=== PATIENT | male | born 1940 | race Hispanic/Latino ===

== ENCOUNTER 2017-12-27 06:43 | Day surgery (SDC) | payer OTHER ==
[2017-12-26 11:31] VITALS: BP 148/77
[2017-12-26 11:50] LABS: APPEARANCE,URINE Cloudy (CLEAR); BILIRUBIN,URINE Negative (NEGATIVE); COLOR,URINE Dark Yellow (YELLOW); GLUCOSE, URINE (UA) Negative (NEGATIVE); KETONES,URINE Negative (NEGATIVE); LEUKOCYTE ESTERASE ,URINE Large (NEGATIVE); NITRATE,URINE Negative (NEGATIVE); OCCULT BLOOD,URINE Negative (NEGATIVE); PH,URINE 5.5 (5.0-8.0); PROTEIN,URINE Negative (NEGATIVE)
[2017-12-26 11:51] LABS: BASOPHILS % (AUTO) 0.5 % (0.0-5.0); CREATININE 1.2 mg/dL (0.5-1.5); EOSINOPHILS % (AUTO) 3.3 % (0.0-8.0); HEMATOCRIT 37.9 % (42-54); LYMPHOCYTES % (AUTO) 39.5 % (21.0-51.0); MEAN CORPUSCULAR HEMOGLOBIN 34.1 pg (27.0-33.0); MEAN CORPUSCULAR VOLUME 97.6 fL (79-99); MONOCYTES % (AUTO) 5.9 % (3.0-13.0); NEUTROPHILS % (AUTO) 50.8 % (40.0-77.0); NUCLEATED RED BLOOD CELLS 0.1 % (0.0-0.19); PLATELET COUNT (AUTO) 151 K/uL (130-400); RED BLOOD CELL COUNT(AUTO) 3.89 MIL/uL (4.50-6.20); RED CELL DISTRIBUTION WIDTH 13.3 % (11.0-15.5)
[2017-12-26 12:00] LABS: RBC,URINE None Seen /HPF (0-1)
[2017-12-26 12:01] LABS: BACTERIA,URINE Rare /HPF (None Seen); MUCUS,URINE Rare LPF (None Seen); SQUAMOUS EPITHELIAL CELL,UR Rare /HPF (0-2); WBC,URINE >100 /HPF (0-1)
[~2017-12-27] VITALS: Ht 175.3 cm; Wt 80.2 kg
[2017-12-27] VITALS (14 sets, daily range): BP systolic 124–145; BP diastolic 67–82
[~2017-12-27 06:43] MED LIST: ALFU10TA18 PO; FINA5TAB41 PO; LACTATED RINGERS 1000ML 1,000 ML IV SCH; LISI-613 PO; NAPR-1023 PO; OMEP20TA25 PO; SIMV20TA6 PO
[2017-12-27] MEDS ORDERED: LIDOCAINE PF 2% 5ML ABBOJECT ONE (09:25)
[2017-12-27] MEDS ORDERED: SUCCINYLCHOLINE CHLORIDE 20 MG/ML 10 ML VIAL ONE (09:25)
[2017-12-27] MEDS ORDERED: GLYCOPYRROLATE 1 MG/5 ML SYRINGE ONE (09:26)
[2017-12-27] MEDS ORDERED: NEOSTIGMINE 5MG/5ML SYR IV ONE (09:26)
[2017-12-27] MEDS ORDERED: PROPOFOL 10 MG/ML 20ML VIAL IV ONE (09:26)
[2017-12-27] MEDS ORDERED: ROCURONIUM 10MG/1ML SYR 10 MG/ML ML ONE (09:26)
[2017-12-27] MEDS ORDERED: FENTANYL CITRATE PF 50 MCG/1 ML 2ML VIAL ONE ×2 (09:26→09:41)
[2017-12-27] MEDS ORDERED: ONDANSETRON HCL 4 MG/2 ML VIAL ONE (09:38)
[2017-12-27] MEDS ORDERED: DEXAMETHASONE SOD PHOSPHATE 4 MG/ML 1ML VIAL ONE (09:38)
[2017-12-27] MEDS ORDERED: PHENYLEPHRINE HCL 10 MG/ML 1ML VIAL IV ONE (09:45)
[2017-12-27] MEDS ORDERED: BUPIVACAINE/PF 0.25% 30ML VIAL IJ ONE (09:47)
[2017-12-27] MEDS ORDERED: EPHEDRINE SULFATE 50 MG/ML AMPULE ONE (09:50)
== END 2017-12-27 12:18 | disposition home or self-care (01) ==
LOC: DAH 06:43
PROVIDERS: ATTEND Surgery
DX: K40.91 Unilateral inguinal hernia, without obstruction or gangrene, recurrent (principal); E66.3 Overweight; Z68.28 Body mass index [BMI] 28.0-28.9, adult; Z98.890 Other specified postprocedural states; Z79.899 Other long term (current) drug therapy; Z87.891 Personal history of nicotine dependence
CPT/HCPCS: 36415; 49520; 80048; 81001; 85025; 93005; A4450; A4452; A4600; C1729; C1781; J0330; J1100; J2001; J2370; J2405; J2704; J2710; J3010 ×2; J3490 ×3; J7030; J7120

== ENCOUNTER 2018-12-24 07:53 | Inpatient (IN) | payer OTHER ==
[~2018-12-24] VITALS: Ht 172.7 cm; Wt 76.7 kg
[~2018-12-24 07:53] MED LIST changes: -LACTATED RINGERS 1000ML 1,000 ML IV SCH; +SIMV-43 PO; -SIMV20TA6 PO
[2018-12-24] MEDS ORDERED: ASPIRIN 325 MG TABLET ONE (08:18)
[2018-12-24 08:44] LABS: BASOPHILS % (AUTO) 0.3 % (0.0-5.0); EOSINOPHILS % (AUTO) 1.8 % (0.0-8.0); HEMATOCRIT 39.3 % (42-54); LYMPHOCYTES % (AUTO) 49.1 % (21.0-51.0); MEAN CORPUSCULAR HEMOGLOBIN 33.8 pg (27.0-33.0); MEAN CORPUSCULAR HGB CONC 34.2 g/dL (32.0-36.0); MEAN CORPUSCULAR VOLUME 98.7 fL (79-99); MONOCYTES % (AUTO) 5.4 % (3.0-13.0); NEUTROPHILS % (AUTO) 43.4 % (40.0-77.0); NUCLEATED RED BLOOD CELLS 0.1 % (0.0-0.19); PLATELET COUNT (AUTO) 150 K/uL (130-400); RED BLOOD CELL COUNT(AUTO) 3.98 MIL/uL (4.50-6.20); RED CELL DISTRIBUTION WIDTH 13.4 % (11.0-15.5); WHITE BLOOD COUNT (AUTO) 6.9 K/uL (4.8-10.8)
[2018-12-24 09:17] LABS: INR 0.99 (0.85-1.15); PARTIAL THROMBOPLASTIN TIME 25.9 SEC (26.3-35.5); PROTHROMBIN TIME 10.4 SEC (9.6-11.6)
[2018-12-24 09:18] LABS: ALBUMIN 3.7 g/dL (3.5-5.0); BILIRUBIN,TOTAL 0.6 mg/dL (0.2-1.0); CREATININE 1.2 mg/dL (0.5-1.5); TOTAL PROTEIN, SERUM 7.4 g/dL (6.0-8.3)
[2018-12-24 09:19] LABS: B-TYPE NATRIURETIC PEPTIDE 214 pg/mL (0-100)
[2018-12-24 09:49] LABS: POTASSIUM 3.8 mmol/L (3.5-5.1)
[2018-12-24 12:15] VITALS: BP 168/71
--- NOTE | 2018-12-24 13:00 | NUR ---
ASSESSMENT ARRIVAL TO FLOOR PT IS AAOX3 DENIES CP DENIES SOB DENIES NV NO COMPLAINTS RESTING IN BED. HR VIA TELE SB 40S. PER ER NURSE MAYTE, SHE SPOKE WITH DR Licha LARSEN AND HE IS AWARE OF CONSULT. CALL LIGHT WITHIN REACH, SPOUSE AT BEDSIDE.
[2018-12-24] MEDS ORDERED: TADA20TA PO (13:07)
[2018-12-24 15:22] VITALS: BP 145/61
--- NOTE | 2018-12-24 16:00 | NUR ---
DR Licha LARSEN ROUNDED SAW PATIENT, PLAN FOR DR VAN TO SEE PT IS AM, MAINTAIN NPO P MN FOR POSSIBLE PPM IF DR VAN DEEMS NECESSARY
[2018-12-24 17:02] LABS: THYROID STIMULATING HORMONE 2.2 uIU/mL (0.36-3.74)
--- NOTE | 2018-12-24 19:05 | NUR ---
Received bedside report pt is for NPO post midnight.
[2018-12-24 20:40] VITALS: BP 144/66
[2018-12-25] VITALS (13 sets, daily range): BP systolic 115–164; BP diastolic 56–88
--- NOTE | 2018-12-25 | NUR ---
Pt. kept NPO at this time demonstrated understanding.Call light placed within reach and instructred to use call light for assistance.
--- NOTE | 2018-12-25 07:34 | NUR ---
Bedside report given to incoming NOD using SBAR all questions answered.Service to be transferred to today.
--- NOTE | 2018-12-25 07:35 | NUR ---
Pt. remained NPO since midnight
--- NOTE | 2018-12-25 08:00 | NUR ---
DR. Michael SCHULZ IN ROOM SPEAKING WITH PT. AND FEMALE FAMILY MEMBER AT BEDSIDE. QUESTIONS ANSWERED BY DR. SCHULZ.
--- NOTE | 2018-12-25 16:53 | NUR ---
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
[2018-12-25] MEDS ORDERED: MEPERIDINE-PF 25 MG/ML SYG ONE ×2 (17:12→17:28)
[2018-12-25] MEDS ORDERED: BUPIVACAINE/PF 0.25% 30ML VIAL IJ ONE (17:12)
[2018-12-25] MEDS ORDERED: LIDOCAINE HCL 1% MDV 50ML VIAL ONE (17:13)
[2018-12-25] MEDS ORDERED: CEFAZOLIN SODIUM 1 GM VIAL ONE (17:13)
[2018-12-25] MEDS ORDERED: MIDAZOLAM HCL 1 MG/ML 2ML VIAL ONE ×2 (17:13→17:28)
[2018-12-25] MEDS ORDERED: IOHEXOL-350 50ML VIAL IV ONE (17:34)
[2018-12-25] MEDS ORDERED: ACETAMINOPHEN-CODEINE 300/30MG TAB PO PRN (18:15)
--- NOTE | 2018-12-25 18:25 | NUR ---
RETURNED TO ROOM VIA BED ACCOMPANIED BY Jericho STOVER RN. PT. DROWSY BUT AROUSABLE. DENIES ANY C/O PAIN, DENIES ANY SOB. NO CREPITUS NOTED ON AUSCULTATION. BED LOW, SIDE RAILS UP X3. INSTRUCTED ON LEFT ARM PRECAUTIONS, VERBALIZED UNDERSTANDING. LEFT ARM SLING IN PLACE. LEFT UPPER CHEST DRSG IN PLACE, D/I; NO ECCHYMOSIS OR HEMATOMA NOTED.CALL LIGHT WITHIN REACH. DAUGHTER AT BEDSIDE.
--- NOTE | 2018-12-25 19:00 | NUR ---
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 denies any discomfort,pt is awake and coherent.
[2018-12-26 03:32] VITALS: BP 123/71
--- NOTE | 2018-12-26 07:32 | NUR ---
Endorsed care to incoming NOD using SBAR ,all questions answered.Pt. remains stable, Chest Xray done today.
[2018-12-26 07:45] VITALS: BP 134/70
--- NOTE | 2018-12-26 08:04 | NUR ---
DR. Michael SCHULZ IN ROOM SPEAKING WITH PT. AND PT.'S DAUGHTER AT BEDSIDE. QUESTIONS ANSWERED BY DR. SCHULZ.
[2018-12-26 11:24] VITALS: BP 129/69
--- NOTE | 2018-12-26 14:45 | NUR ---
HL REMOVED, CATHETER INTACT. DISCHARGE INSTRUCTIONS GIVEN TO PT. AND DAUGHTER AT BEDSIDE, VERBALIZED MUTUAL UNDERSTANDING.
--- NOTE | 2018-12-26 14:57 | NUR ---
DC PLAN VISITED WITH PATIENT YESTERDAY IN PROCEDURE TODAY IN BATHROOM WILL CONTINUE TO TRY TO DO IA. Addendum: 12/26/18 at 1458 by SUNDAY HENDERSON RN CM Amended: Links added.
--- NOTE | 2018-12-27 08:59 | NUR ---
DC PLAN PATIENT WAS DISCHARGED ALREADY GONE NO NEEDS VERBALIZED BY NURSING STAFF. Addendum: 12/27/18 at 0859 by SUNDAY HENDERSON RN CM Amended: Links added.
== END 2018-12-26 15:04 | disposition home or self-care (01) | DRG 243 ==
LOC: EDH 07:53 → EDHIP 09:50 → OBSVTOIN 09:50 → 2AH 12:19
PROVIDERS: ADMIT Internal Medicine; ATTEND Internal Medicine
PROC: 0JH606Z Insertion of Pacemaker, Dual Chamber into Chest Subcutaneous Tissue and Fascia, Open Approach (ICD-10-PCS; principal; 2018-12-25)
PROC: 02H63JZ Insertion of Pacemaker Lead into Right Atrium, Percutaneous Approach (ICD-10-PCS; 2018-12-25)
PROC: 02HK3JZ Insertion of Pacemaker Lead into Right Ventricle, Percutaneous Approach (ICD-10-PCS; 2018-12-25)
DX: I44.1 Atrioventricular block, second degree (principal); I50.32 Chronic diastolic (congestive) heart failure; I45.2 Bifascicular block; D64.9 Anemia, unspecified; E78.5 Hyperlipidemia, unspecified; N40.0 Benign prostatic hyperplasia without lower urinary tract symptoms; Z87.891 Personal history of nicotine dependence; I11.0 Hypertensive heart disease with heart failure
CPT/HCPCS: 33208; 36415; 71045; 80053; 82550; 83880; 84439; 84443; 84484; 85025; 85610; 85730; 93005; 93306; 99156; 99157; C1785; G0378; J0690; J2175; J2250; J3490; Q9967

== ENCOUNTER → 2019-05-22 | Outpatient (CLI) | payer OTHER ==
--- NOTE | 2019-04-24 12:07 | NUR ---
PT REQUESTED TO BE R/S FOR A DIFFERENT DOS R/T FEELING ILL.
[~2019-05-22] VITALS: Ht 172.7 cm; Wt 74.8 kg
[~2019-05-22] MED LIST changes: -ALFU10TA18 PO; +ALFU10TA9 PO; -NAPR-1023 PO; -OMEP20TA25 PO; +REGADENOSON 0.4 MG/5 ML PF SYG IVP SCH; +TADA20TA PO
== END | disposition home or self-care (01) ==
LOC: SHCH 04-24 08:20
PROVIDERS: ATTEND Internal Medicine Cardiovascular Disease
DX: I21.19 ST elevation (STEMI) myocardial infarction involving other coronary artery of inferior wall (principal); I21.29 ST elevation (STEMI) myocardial infarction involving other sites; I25.10 Atherosclerotic heart disease of native coronary artery without angina pectoris
CPT/HCPCS: 78452; 93017; 96374; A9500 ×2; J2785

== ENCOUNTER → 2024-02-21 | Outpatient (CLI) | payer OTHER ==
[~2024-02-21] MED LIST changes: +ALFU10TA46 PO; -ALFU10TA9 PO; -LISI-613 PO; +LISI20TA24 PO; -REGADENOSON 0.4 MG/5 ML PF SYG IVP SCH
[2024-02-21] MEDS: REGADENOSON 0.4 MG/5 ML PF SYG IVP ONE (11:02)
--- NOTE | 2024-02-22 08:45 | HMCSR ---
APPROVED REPORT Height: 5 ft 8in Weight: 172 lbs TEST INDICATIONS Chest Pain The imaging protocol used to acquire images was Rest Tc-99m/stress Tc-99m 1 day Consent: The procedure was explained and understood by the patient. Informerd consent was witnessed Carolynn Torres RN First, low dose rest was performed then high dose stress. RESTING DATA: The resting ekg shows: NSR, A sensing, V pacing Rest SPECT myocardial perfusion imaging was performed in supine position 75 minutes following the int ravenous injection of 12.6 mCi of Tc-99 Sestamibi. Time of rest injection: 09:11: Date: 02/21/2024 Time of rest imagin:20: Date: 02/21/2024 PHARMACOLOGIC STRESS: Pharmacologic stress test was performed by injecting regadenoson 0.4 mg IV push followed by the intra venous injection of 31.5 mCi of Tc-99 Sestamibi. Time of stress injection: 11:00: Date: 02/21/2024 Time of stress imagin:16: Date: 02/21/2024 Heart Rate at time of stress injection: 60 bpm. Gated Stress SPECT was performed 66 minutes after stress injection. The images were gated to evaluate regional wall motion and calculate left ventricular ejection fracti on. STRESS DETAILS Reason for Termination: Infusion complete Stress Symptoms: Dyspnea Max HR Achieved: 87 bpm % of APMHR Achieved: 65 Max Blood Pressure: 181/76 mmHg Stress ECG: NSR Conclusion Fixed inferior defect consistent with diaphragm attenuation artifact No ischemia LV ejection fraction 57% Normal LV wall motion Normal LV size at rest and stress No increased lung uptake
== END | disposition home or self-care (01) ==
LOC: SHCH 08:24
PROVIDERS: ATTEND Internal Medicine Cardiovascular Disease
DX: R07.9 Chest pain, unspecified (principal)
CPT/HCPCS: 78452; 93017; J2785; A9500 ×2